=== PATIENT | female | born 1980 | race Caucasian/White ===

== ENCOUNTER 2017-03-10 15:27 | Emergency (ER) | payer OTHER ==
--- NOTE | 2017-03-10 19:08 | ED ORDER SUMMARY ---
..... Patient: LAMONTE FLORES OrderSheet [facility] VisitID: [id number] [address] [place] [address] 36y, F Registration Date/Time: 03/10/2017 ORDER SHEET Weight: 45.3 kg (stated) Allergies: Codeine, Lamictal, Sulfa Antibiotics GENERAL ORDERS: UA-Culture if indicated Urgent (16:30 03/10/2017 LSullivan R.N. verbal order read back to Luis Miguel VASQUEZ) (Ack 16:31 LNations ER Tech1) (16:54 LSullivan R.N.) CBC w Diff Urgent (17:08 03/10/2017 Luis Miguel VASQUEZ) (Ack 17:15 LNations ER Tech1) (17:45 LSullivan R.N.) CMP Urgent (17:08 03/10/2017 Luis Miguel VASQUEZ) (Ack 17:15 LNations ER Tech1) (17:45 LSullivan R.N.) CT Abd/Pel w Cont (No) (N/A) Urgent (18:13 03/10/2017 Luis Miguel VASQUEZ) (Ack 18:15 LNations ER Tech1) (18:52 LSullivan R.N.) MEDICATION ORDERS: GI Cocktail WHITE PO 30 mL with Lidocaine Viscous Mouth/Throat 15 mL, Maalox Plus Oral 15 mL (NOW) (17:09 03/10/2017 Luis Miguel VASQUEZ) (18:07 LSullivan R.N.) IV FLUIDS: IV Saline Lock (16:30 03/10/2017 LSullivan R.N. per protocol) (16:31 LSullivan R.N.) IV NS : initial bolus 1000 mL (1000 mL/hr), then none - (NOW) (17:08 03/10/2017 Luis Miguel VASQUEZ) (18:05 LSullivan R.N.) Dilaudid IV 1 mg (HIGH ALERT MEDICATION, NOW) (17:08 03/10/2017 Luis Miguel VASQUEZ) (18:07 LSullivan R.N.) Zofran IV 4 mg (NOW) (17:09 03/10/2017 Luis Miguel VASQUEZ) (18:05 LSullivan R.N.) Protonix IVP 40mg 40 mg (Mix in NS 10ml over 2min) (17:09 03/10/2017 Luis Miguel VASQUEZ) (18:06 Maddie Valladares) ORDER SHEET NOTES: [Electronically signed by Shell Hooker R.N. (19:20 03/10/2017)] [Electronically signed by Rhonda Alston MD (11:03 03/18/2017)] [Electronically locked/signed by Shell Hooker R.N. (19:20 03/10/2017)]
--- NOTE | 2017-03-10 19:08 | ED ORDER SUMMARY ---
..... Patient: LAMONTE FLORES OrderSheet [facility] VisitID: [id number] [address] [place] [address] 36y, F Registration Date/Time: 03/10/2017 ORDER SHEET Weight: 45.3 kg (stated) Allergies: Codeine, Lamictal, Sulfa Antibiotics GENERAL ORDERS: UA-Culture if indicated Urgent (16:30 03/10/2017 LSullivan R.N. verbal order read back to Luis Miguel VASQUEZ) (Ack 16:31 LNations ER Tech1) (16:54 LSullivan R.N.) CBC w Diff Urgent (17:08 03/10/2017 Luis Miguel VASQUEZ) (Ack 17:15 LNations ER Tech1) (17:45 LSullivan R.N.) CMP Urgent (17:08 03/10/2017 Luis Miguel VASQUEZ) (Ack 17:15 LNations ER Tech1) (17:45 LSullivan R.N.) CT Abd/Pel w Cont (No) (N/A) Urgent (18:13 03/10/2017 Luis Miguel VASQUEZ) (Ack 18:15 LNations ER Tech1) (18:52 LSullivan R.N.) MEDICATION ORDERS: GI Cocktail WHITE PO 30 mL with Lidocaine Viscous Mouth/Throat 15 mL, Maalox Plus Oral 15 mL (NOW) (17:09 03/10/2017 Luis Miguel VASQUEZ) (18:07 LSullivan R.N.) IV FLUIDS: IV Saline Lock (16:30 03/10/2017 LSullivan R.N. per protocol) (16:31 LSullivan R.N.) IV NS : initial bolus 1000 mL (1000 mL/hr), then none - (NOW) (17:08 03/10/2017 Luis Miguel VASQUEZ) (18:05 LSullivan R.N.) Dilaudid IV 1 mg (HIGH ALERT MEDICATION, NOW) (17:08 03/10/2017 Luis Miguel VASQUEZ) (18:07 LSullivan R.N.) Zofran IV 4 mg (NOW) (17:09 03/10/2017 Luis Miguel VASQUEZ) (18:05 LSullivan R.N.) Protonix IVP 40mg 40 mg (Mix in NS 10ml over 2min) (17:09 03/10/2017 Luis Miguel VASQUEZ) (18:06 Maddie Valladares) ORDER SHEET NOTES: [Electronically signed by Shell Hooker R.N. (19:20 03/10/2017)] [Electronically signed by Rhonda Alston MD (11:03 03/18/2017)] [Electronically locked/signed by Shell Hooker R.N. (19:20 03/10/2017)]
--- NOTE | 2017-03-10 19:08 | ED CLINICAL REPORT ---
Clinical Report - Physicians/Mid Levels [facility] [address] [place] [address] 03/10/2017 15:31 Patient: LAMONTE FLORES Time Seen: 15:33. Arrived- By private vehicle. Historian- patient. HISTORY OF PRESENT ILLNESS Chief Complaint: UPPER ABDOMINAL PAIN and INDIGESTION. It is described as pressure, tightness and burning. No radiation. It is described as located in the epigastric area and left upper quadrant of the abdomen. At its maximum, severity described as moderate. When seen in the E.D., severity described as moderate. Modifying factors. Not worsened by anything. Not relieved by anything. This started yesterday and is still present but is better now. Onset during light activity. The patient has had mild nausea. No vomiting, difficulty breathing or diaphoresis. Similar symptoms previously: Occasionally. Recent medical care: Not recently seen/assessed. REVIEW OF SYSTEMS No fever, chills, cough, pedal edema or calf pain. No fainting episodes, headache, sore throat, blurred vision or abdominal pain. No black stools, difficulty with urination, skin rash, enlarged lymph nodes or joint pain. No bloody stools. All systems otherwise negative, except as recorded above. PAST HISTORY Problems: Concussion. Tetanus Status. LNMP - Last Normal Menstrual Period. Endometriosis. Anxiety Reaction. Depression. Neuropathy. Additional Surgeries: Hysterectomy. L Salpingectomy. Laparoscopy. Medications: Cyclobenzaprine HCl Oral. Amitriptyline HCl Oral. BusPIRone HCl Oral. Gabapentin Oral 600 mg x 4.5 tabs , 3x a day. Omeprazole Oral, daily. Allergies: Codeine. Lamictal. Sulfa Antibiotics. SOCIAL HISTORY Smoker- current status unknown. Alcohol use. History of drug use: marijuana. ADDITIONAL NOTES The nursing notes have been reviewed. PHYSICAL EXAM Vital Signs: 03/10/2017 15:42 BP: 138/73. HR: 77. RR: 18. O2 saturation: 100%. Temp: 97.9 F. Pain level now: 610. Have been reviewed. Appearance: Alert. Oriented X3. No acute distress. Eyes: Pupils equal, round and reactive to light. Eyes normal inspection. ENT: Nose normal. Neck: Normal inspection. Neck supple. CVS: Normal heart rate and rhythm. Heart sounds normal. Pulses normal. Respiratory: No respiratory distress. Breath sounds normal. Abdomen: Soft. Moderate tenderness in the upper abdomen. Back: Normal external inspection. No CVA tenderness. Skin: Skin warm and dry. Normal skin color. No rash. Normal skin turgor. Extremities: Extremities exhibit normal ROM. No lower extremity edema. Neuro: No motor deficit. No sensory deficit. (grossly oriented.). LABS, X-RAYS, AND EKG Abdominal CT: Normal aorta. Normal liver, spleen, pancreas, gallbladder and adrenals. Normal kidneys. Bladder normal. Appendix normal. No mass. No free fluid. No bony lesion. No diverticulitis. Study type: abdomen and pelvis. Abdominal CT performed with IV contrast. The study was independently viewed by me, interpreted by the radiologist and contemporaneously by me and discussed with the radiologist. Prior studies were not available for comparison. Laboratory Tests: UA-Culture if indicated: (DONA: 03/10/2017 15:52) ( [facility] 03/10/2017 17:14) Final results Test Result Flag Units (Reference) URINE COLOR YELLOW URINE APPEARANCE CLEAR URINE GLUCOSE NEGATIVE (NEGATIVE) URINE BILIRUBIN NEGATIVE (NEGATIVE) URINE KETONE NEGATIVE (NEGATIVE) URINE SPECIFIC GRAVITY <= 1.005 L (1.010-1.030) URINE PH 5.5 (5.0-8.0) URINE PROTEIN NEGATIVE (NEGATIVE) URINE UROBILINOGEN 0.2 EU/dL (0.2-1.0) URINE NITRITE NEGATIVE (NEGATIVE) URINE BLOOD NEGATIVE (NEGATIVE) URINE LEUK ESTERASE NEGATIVE (NEGATIVE) URINE RBC 0-1 rbc/hpf (0-1) URINE WBC 0-1 wbc/hpf (0-1) URINE EPITHELIAL CELLS 1-3 EPI/hpf (0-5) URINE BACTERIA NONE SEEN (NONE SEEN) URINE COMMENT CULT NOT INDICATED URINE CULTURES ARE SET-UP BASED ON THE FOLLOWING CRITERIA:POSITIVE NITRITEPOSITIVE LEUKOCYTE ESTERASEGREATER THAN 10 WHITE BLOOD CELLSMODERATE (2+) OR GREATER BACTERIA CBC w Diff: (DONA: 03/10/2017 16:52) ( [facility] 03/10/2017 17:25) Final results Test Result Flag Units (Reference) WHITE BLOOD COUNT 7.3 K/uL (4.5-11.5) RED BLOOD COUNT 4.44 M/uL (4.00-5.20) HEMOGLOBIN 14.0 gm/dL (12.0-16.0) HEMATOCRIT 41.8 % (36.0-46.0) MEAN CELL VOLUME 94 fL (80-100) MEAN CORPUSCULAR HGB 31 pg (26-34) MEAN CORPUSCULAR HGB CONC 33 g/dL (31-37) RED CELL DISTRIBUTION WIDTH 13.3 % (11.6-14.8) PLATELET COUNT 236 K/uL (150-400) NEUTROPHIL % 74.0 % (50-75) LYMPH % 17.7 L % (25-40) MONO % 5.7 % (3-14) EOSINOPHIL % 2.2 % (0-4) BASOPHIL % 0.4 % (0-2) CMP: (DONA: 03/10/2017 16:52) ( [facility] 03/10/2017 17:25) Final results Test Result Flag Units (Reference) GLUCOSE 120 H mg/dL (70-110) BUN 6 L mg/dL (7-18) CREATININE 0.7 mg/dL (0.6-1.3) Estimated GFR >60 mL/min Estimated GFR- >60 mL/min Note: Persistent reduction over 3 months in eGFR<60 mL/min/1.73 m2 defines CKD. Patients with eGFR values>=60 mL/min/1.73 m2 may also have CKD if evidence ofpersistent proteinuria. Additional information may be foundat www.kidney.org. SODIUM 142 mmol/L (136-145) POTASSIUM 3.7 mmol/L (3.5-5.1) CHLORIDE 105 mmol/L (98-107) CARBON DIOXIDE 27 mmol/L (21-32) CALCIUM 9.0 mg/dL (8.5-10.1) TOTAL PROTEIN 7.5 g/dL (6.4-8.2) ALBUMIN 3.7 g/dL (3.3-5.0) BILIRUBIN, TOTAL 0.3 mg/dL (0.0-1.0) ALKALINE PHOSPHATASE 66 U/L (46-116) AST (SGOT) 22 U/L (15-37) ALT (SGPT) 31 U/L (12-78) . Pulse Oximetry: 03/10/2017 15:42 O2 saturation: 100%. (FIO2 - room air). Interpretation: normal. PROGRESS AND PROCEDURES Course of Care: The patient was treated symptomatically with IV fluids and Zofran, Protonix, Dilaudid and a GI cocktail. This did result in improvement in her symptoms. She was worked up with blood work as well as a urinalysis which were found to be unremarkable. CT scan was also unremarkable. No emergent cause of the patient's symptoms was found. Patient counseled in person regarding the patient's stable condition, test results, diagnosis and need for follow-up. Concerns were addressed. Old medical records reviewed. Disposition: Discharged. Condition: stable. CLINICAL IMPRESSION Gastroesophageal reflux disease with esophagitis. Acute gastritis. No alcoholic gastritis or hemorrhagic gastritis. INSTRUCTIONS (Your labs and CT scan looked good.). Warnings: GENERAL WARNINGS: Return or contact your physician immediately if your condition worsens or changes unexpectedly, if not improving as expected, or if other problems arise. Your Current Medications: CONTINUE TAKING THE FOLLOWING MEDICATIONS: Amitriptyline HCl Oral. BusPIRone HCl Oral. Cyclobenzaprine HCl Oral. Gabapentin Oral : 600 mg x 4.5 tabs 3x a day. Omeprazole Oral : daily. Prescription Medications: Zantac 150 mg: take 1 orally every 12 hours. Dispense sixty (60). No refills. Substitution is permissible. OTC Medications: Maximum Strength Maalox Liquid (Available over the counter): take two (2) teaspoons orally every 8 hours and as needed for indigestion or heartburn. Dispense one (1) bottle Follow-up: Follow up with your doctor. Call for the next available appointment. Reason for referral: Follow up to discuss endoscopy. Understanding of the discharge instructions verbalized by patient. (Electronically signed by Rhonda Alston MD 03/18/2017 11:03)
--- NOTE | 2017-03-10 19:08 | ED NURSING NOTES ---
Clinical Report - Nurses [facility] [address] [place] [address] 03/10/2017 15:31 Patient: LAMONTE FLORES TRIAGE Triage time 15:36. Acuity: LEVEL 3. Chief Complaint: CHEST PAIN and DISCOMFORT. Alert. --15:42 Shell Hooker R.N. 15:42 03/10/17. BP: 138/73. HR: 77. RR: 18. O2 saturation: 100%. Temp: 97.9 F. Pain level now: 03/20. --15:45 Shell Hooker R.N. Weight: 45.3 kg stated. Height/Length: 62 inches Per Patient. BMI: 18.3. --15:38 Shell Hooker R.N. Medications Gabapentin Oral 600 mg x 4.5 tabs , 3x a day. Omeprazole Oral, daily. --15:39 Shell Hooker R.N. BusPIRone HCl Oral. --15:39 Shell Hooker R.N. Amitriptyline HCl Oral. --15:40 Shell Hooker R.N. Cyclobenzaprine HCl Oral. --15:40 Shell Hooker R.N. Allergies Codeine. Lamictal. Sulfa Antibiotics. --15:37 Shell Hooker R.N. History Arrived by private vehicle. Historian: patient. Accompanied by spouse. Primary physician (Fer mcneil [facility] in [place]). This started yesterday. Treatment IT ADMIN: None. PAST MEDICAL HX: The patient has had a hysterectomy. SOCIAL HX: Heavy tobacco smoker (cigarette)- less than 1 pack per day. Occasional alcohol use. History of drug use: marijuana. FUNCTIONAL ASSESSMENT: Functional assessment: no impairments noted. LEARNING NEEDS ASSESSMENT: The learning needs assessment revealed no barriers. --15:42 Shell Hooker R.N. PROBLEMS: Concussion. Endometriosis. Anxiety Reaction. Depression. Neuropathy. --15:37 Shell Hooker R.N. ADDITIONAL SURGERIES: L fallopian tube removed. --15:38 Shell Hooker R.N. Hysterectomy. Laparoscopy. --15:42 Shell Hooker R.N. Interventions ID and allergy band on patient. To room. --15:42 Shell Hooker R.N. PHYSICAL ASSESSMENT 15:46 03/10/17. GENERAL / NEURO / PSYCH: ( Pt states she has reflux, but her esophagus and breast bone is pain ful.). --15:46 Shell Hooker R.N. NURSING PROGRESS NOTES 15:46 03/10/17. Patient identifiers checked. Call light placed in reach. Bed placed in lowest position. Patient ready for evaluation- chart flagged. --15:46 Shell Hooker R.N. 16:31 03/10/2017 Site #1 started via IV in the right antecubital space with an 20g angiocath, with aseptic technique and good blood return; one attempt. Blood drawn: rainbow set. Labeled in the presence of the patient and sent to the lab. Saline lock flushed with 10 mL saline. --16:31 Shell Hooker R.N. 17:50 03/10/2017 Started bag #1 1000 mL IV Fluids IV NS (Saline); at 1000 mL/hr via site #1 via IV pump. Allergies verified and confirmed 5 rights. --18:05 Shell Hooker R.N. 17:53 03/10/2017 Zofran (Ondansetron HCl) IVP 4 mg given over 2 minute(s) via site #1. Allergies verified and confirmed 5 rights. --18:05 Shell Hooker R.N. 17:55 03/10/2017 PROTONIX (Pantoprazole Sodium) IVP 40 mg given over 3 minute(s) via site #1. Allergies verified and confirmed 5 rights. --18:06 Shell Hooker R.N. 17:57 03/10/2017 GI COCKTAIL WHITE (Simethicone) PO 30 mL given. Confirmed 5 rights. --18:06 Shell Hooker R.N. 18:00 03/10/2017 Dilaudid (HYDROmorphone HCl PF) IVP 1 mg given over 2 minute(s) via site #1. Allergies verified, confirmed 5 rights and sedative warning given. --18:07 Shell Hooker R.N. 19:15 03/10/2017 Site #1 removed upon discharge. Catheter intact. Bandage applied. --19:20 Shell Hooker R.N. 19:15 03/10/2017 IV Fluids IV NS Discontinued: bag #1 completed upon discharge. Total amount infused: 1000 mL. --19:20 Shell Hooker R.N. DISPOSITION / DISCHARGE Departure time: 1914. Condition at departure: improved. No learning barriers present. Discharge instructions provided and reviewed with the patient. Reviewed medication(s) information. Prescription(s) given to the patient. Reviewed referral to family practice for followup and testing. Patient verbalized understanding. Written instructions provided. The patient was discharged home and accompanied by spouse. She left the Emergency Department ambulatory and via private vehicle. Spouse driving. --19:19 Shell Hooker R.N. 19:18 03/10/17. BP: 101/54. HR: 86. RR: 18. O2 saturation: 98%. Pain level now: 12/18. --19:19 Shell Hooker R.N. Locked/Released at 03/10/2017 19:20 by Shell Hooker R.N.
--- NOTE | 2017-03-10 19:08 | ED NURSING NOTES ---
Clinical Report - Nurses [facility] [address] [place] [address] 03/10/2017 15:31 Patient: LAMONTE FLORES TRIAGE Triage time 15:36. Acuity: LEVEL 3. Chief Complaint: CHEST PAIN and DISCOMFORT. Alert. --15:42 Shell Hooker R.N. 15:42 03/10/17. BP: 138/73. HR: 77. RR: 18. O2 saturation: 100%. Temp: 97.9 F. Pain level now: 03/20. --15:45 Shell Hooker R.N. Weight: 45.3 kg stated. Height/Length: 62 inches Per Patient. BMI: 18.3. --15:38 Shell Hooker R.N. Medications Gabapentin Oral 600 mg x 4.5 tabs , 3x a day. Omeprazole Oral, daily. --15:39 Shell Hooker R.N. BusPIRone HCl Oral. --15:39 Shell Hooker R.N. Amitriptyline HCl Oral. --15:40 Shell Hooker R.N. Cyclobenzaprine HCl Oral. --15:40 Shell Hooker R.N. Allergies Codeine. Lamictal. Sulfa Antibiotics. --15:37 Shell Hooker R.N. History Arrived by private vehicle. Historian: patient. Accompanied by spouse. Primary physician (Fer mcneil [facility] in [place]). This started yesterday. Treatment ALARM INSTALLER: None. PAST MEDICAL HX: The patient has had a hysterectomy. SOCIAL HX: Heavy tobacco smoker (cigarette)- less than 1 pack per day. Occasional alcohol use. History of drug use: marijuana. FUNCTIONAL ASSESSMENT: Functional assessment: no impairments noted. LEARNING NEEDS ASSESSMENT: The learning needs assessment revealed no barriers. --15:42 Shell Hooker R.N. PROBLEMS: Concussion. Endometriosis. Anxiety Reaction. Depression. Neuropathy. --15:37 Shell Hooker R.N. ADDITIONAL SURGERIES: L fallopian tube removed. --15:38 Shell Hooker R.N. Hysterectomy. Laparoscopy. --15:42 Shell Hooker R.N. Interventions ID and allergy band on patient. To room. --15:42 Shell Hooker R.N. PHYSICAL ASSESSMENT 15:46 03/10/17. GENERAL / NEURO / PSYCH: ( Pt states she has reflux, but her esophagus and breast bone is pain ful.). --15:46 Shell Hooker R.N. NURSING PROGRESS NOTES 15:46 03/10/17. Patient identifiers checked. Call light placed in reach. Bed placed in lowest position. Patient ready for evaluation- chart flagged. --15:46 Shell Hooker R.N. 16:31 03/10/2017 Site #1 started via IV in the right antecubital space with an 20g angiocath, with aseptic technique and good blood return; one attempt. Blood drawn: rainbow set. Labeled in the presence of the patient and sent to the lab. Saline lock flushed with 10 mL saline. --16:31 Shell Hooker R.N. 17:50 03/10/2017 Started bag #1 1000 mL IV Fluids IV NS (Saline); at 1000 mL/hr via site #1 via IV pump. Allergies verified and confirmed 5 rights. --18:05 Shell Hooker R.N. 17:53 03/10/2017 Zofran (Ondansetron HCl) IVP 4 mg given over 2 minute(s) via site #1. Allergies verified and confirmed 5 rights. --18:05 Shell Hooker R.N. 17:55 03/10/2017 PROTONIX (Pantoprazole Sodium) IVP 40 mg given over 3 minute(s) via site #1. Allergies verified and confirmed 5 rights. --18:06 Shell Hooker R.N. 17:57 03/10/2017 GI COCKTAIL WHITE (Simethicone) PO 30 mL given. Confirmed 5 rights. --18:06 Shell Hooker R.N. 18:00 03/10/2017 Dilaudid (HYDROmorphone HCl PF) IVP 1 mg given over 2 minute(s) via site #1. Allergies verified, confirmed 5 rights and sedative warning given. --18:07 Shell Hooker R.N. 19:15 03/10/2017 Site #1 removed upon discharge. Catheter intact. Bandage applied. --19:20 Shell Hooker R.N. 19:15 03/10/2017 IV Fluids IV NS Discontinued: bag #1 completed upon discharge. Total amount infused: 1000 mL. --19:20 Shell Hooker R.N. DISPOSITION / DISCHARGE Departure time: 1914. Condition at departure: improved. No learning barriers present. Discharge instructions provided and reviewed with the patient. Reviewed medication(s) information. Prescription(s) given to the patient. Reviewed referral to family practice for followup and testing. Patient verbalized understanding. Written instructions provided. The patient was discharged home and accompanied by spouse. She left the Emergency Department ambulatory and via private vehicle. Spouse driving. --19:19 Shell Hooker R.N. 19:18 03/10/17. BP: 101/54. HR: 86. RR: 18. O2 saturation: 98%. Pain level now: 12/18. --19:19 Shell Hooker R.N. Locked/Released at 03/10/2017 19:20 by Shell Hooker R.N.
--- NOTE | 2017-03-10 19:15 | DIAGNOSTIC IMAGING REPORT ---
PROCEDURE: CT ABD/PELVIS WITH CONTRAST CLINICAL INDICATION: ABDOMINAL PAIN TECHNIQUE: 100 ml of Isovue 300 were injected intravenously and axial images were obtained of the entire abdomen and pelvis with sagittal and coronal reformations. COMPARISON: None. FINDINGS: ABDOMEN: Lung bases are clear. Heart size is normal. Liver, gallbladder, pancreas, spleen, adrenal glands, kidneys and abdominal aorta are normal. Stomach is unremarkable. Moderate stool. PELVIS: Normal appendix. Hysterectomy. Normal bladder and adnexa. No pelvic mass or free fluid. Mild L5-S1 disc space narrowing. IMPRESSION: 1. Moderate stool 2. Hysterectomy 3. Results discussed with Dr. Alston All CT scans at this facility use dose modulation, iterative reconstruction, and/or weight-based dosing when appropriate to reduce radiation dose to as low as reasonably achievable.
--- NOTE | 2017-03-18 11:04 | ED DISCHARGE INSTRUCTIONS ---
Patient: LAMONTE FLORES General Instructions [facility] VisitID: [id number] [place] [address] 36y, F Registration Date/Time: 03/10/2017 Gastroesophageal reflux disease with esophagitis. Acute gastritis. No alcoholic gastritis or hemorrhagic gastritis. INSTRUCTIONS (Your labs and CT scan looked good.). Warnings: GENERAL WARNINGS: Return or contact your physician immediately if your condition worsens or changes unexpectedly, if not improving as expected, or if other problems arise. Your Current Medications: CONTINUE TAKING THE FOLLOWING MEDICATIONS: Amitriptyline HCl Oral. BusPIRone HCl Oral. Cyclobenzaprine HCl Oral. Gabapentin Oral : 600 mg x 4.5 tabs 3x a day. Omeprazole Oral : daily. Prescription Medications: Zantac 150 mg: take 1 orally every 12 hours. Dispense sixty (60). No refills. Substitution is permissible. OTC Medications: Maximum Strength Maalox Liquid (Available over the counter): take two (2) teaspoons orally every 8 hours and as needed for indigestion or heartburn. Dispense one (1) bottle Follow-up: Follow up with your doctor. Call for the next available appointment. Reason for referral: Follow up to discuss endoscopy. Understanding of the discharge instructions verbalized by patient. ADDITIONAL INFORMATION GERD (Adult) The esophagus is a tube that carries food from the mouth to the stomach. A valve at the lower end of the esophagus prevents stomach acid from flowing upward. If this valve does not work properly, acid from the stomach enters the esophagus. If this occurs over and over, the acid will injure the lining of the esophagus. This condition is called GERD (gastroesophageal reflux disease) or acid reflux. When stomach acid flows upward into the esophagus, it causes burning, pressure or sharp pain in the upper abdomen or mid to lower chest. The pain can spread to the neck, back, or shoulder, similar to heart pain (angina). There may be belching, an acid taste in the back of the throat, chronic cough, or sore throat or hoarseness. GERD symptoms often occur during the day after a big meal, but it can also occur at night when lying down. Smoking,as well as drinking alcohol, increases the risk of GERD. GERD is a chronic condition. Once it begins, it is often lifelong. Treatment includes changes in eating habits and the use of acid bess medications to decrease the amount of acid in the stomach. Symptoms often improve with treatment, but if treatment is stopped, the symptoms usually return after a few months. So most persons with GERD will need to continue treatment. Home Care: Take the prescribed acid bess medication for the full course of treatment even if you begin to feel better sooner. This medication can take up to several days to fully control your symptoms. If you cant afford the prescribed medication, you can try [id number] acid blockers, such as Pepcid AC, Tagamet, Zantac, or Aciphex. If these do not relieve your symptoms, a stronger acid-bess can be tried, such as Prilosec OTC. You can use antacids, such as Tums, Rolaids, Mylanta, or Maalox, for pain. This will be useful the first few days after starting acid blockers when the blockers havent started working yet. Follow the directions on the label. Liquid antacids may work better than tablets. Note that antacids can interfere with absorption of certain medications. Specifically, do not take Tagamet (cimetidine), Zantac (ranitidine), or Carafate (sucralfate) within 1 hour of taking an antacid. Talk with your pharmacist if you have any questions. Limit or avoid fatty, fried, and spicy foods, as well as coffee, chocolate, mint, and foods with high acid content such as tomatoes and citrus fruit and juices (orange, grapefruit, lemon). Avoid alcohol and smoking. Dont eat large meals, especially at night. Frequent, smaller meals are best. Do not lie down right after eating. And dont eat anything 3 hours before going to bed. If you are overweight, losing weight will reduce symptoms. Women should not wear corsets or girdles because this increases pressure on the stomach and worsens reflux. If your symptoms occur during sleep, use a foam wedge to elevate your upper body (not just your head.) Or, place 4" blocks under the head of your bed. Follow Up with your doctor or as advised by our staff. Further testing may be needed. If you do not begin to improve over the next 4 days, contact your doctor. If you had an x-ray, CT scan, or ECG (electrocardiogram), it will be reviewed by a specialist. Youll be notified of any new findings that affect your care. Get Prompt Medical Attention if any of the following occur: Stomach pain gets worse or moves to the lower right abdomen (appendix area) Chest pain appears or gets worse, or spreads to the back, neck, shoulder, or arm Frequent vomiting (cant keep down liquids) Blood in the stool or vomit (red or black in color) Feeling weak or dizzy, fainting, or trouble breathing Fever of 100.4F (38C) or higher, or as directed by your healthcare provider Gastritis Versus Ulcer (No Antibiotic Tx) The symptoms of gastritis and peptic ulcer are very similar. Both can cause a dull ache or burning pain in the upper abdomen. Other symptoms include nausea, vomiting, loss of appetite, and belching or bloating. Blood in the vomit or stools (red or black) is a sign of bleeding in the stomach. This requires immediate medical attention. A Peptic Ulcer is an open sore in the lining of the stomach or duodenum (upper intestine). The most common cause of peptic ulcer disease is a bacterial infection (H pylori) in the stomach. Another common cause is taking anti-inflammatory medications (such as ibuprofen, prednisone, and aspirin). Gastritis is an irritation of the stomach lining. It can be acute (recent) or chronic (lasting a long time). Gastritis can be caused by overuse of alcohol or anti-inflammatory medications (such as aspirin, ibuprofen, prednisone). H pyloriinfection can also cause chronic gastritis. Tests for H pyloriare used to screen for bacterial infection. If no infection is found, ulcer and gastritis can be treated by stopping the cause, such as anti-inflammatory medications, alcohol, caffeine, and tobacco, and treating with antacids plus an acid bess medication. If H pylori infection is found, antibiotics will be prescribed along with an acid bess. Persons 55 years and older may undergo other tests before treatment is started. Two common tests are used to evaluate your symptoms. An upper GI series is an x-ray taken after you drink a chalky liquid called barium. This coats the stomach and allows an ulcer to show up on the x-ray. Another test is called endoscopy during which a long thin tube called an endoscope is passed down your throat to the stomach. A camera at the end of the scope allows the doctor to view inside the stomach to check the cause of your symptoms. Home Care: Take the prescribed acid bess medication for the full course of treatment even if you begin to feel better sooner. This medication can take up to several days to fully control your symptoms. If you cant afford the prescribed medication, you can try [id number] acid blockers, such as Pepcid AC, Tagamet, Zantac, or Aciphex. If these do not relieve your symptoms, a stronger acid-bess can be tried, such as Prilosec OTC. If you have been prescribed an antibiotic to treat H pyloriinfection, finish the full course of medication. Do so even if you begin to feel better sooner. If you stop the medication too soon, the infection can return and be harder to treat. You can use antacids, such as Tums, Rolaids, Mylanta, or Maalox, for pain. This will be useful the first few days after starting acid blockers when the blockers havent started working yet. Follow the directions on the label. Liquid antacids may work better than tablets. Note that antacids can interfere with absorption of certain medications. Specifically, do not take Tagamet (cimetidine), Zantac (ranitidine), or Carafate (sucralfate) within 1 hour of taking an antacid. Talk with your pharmacist if you have any questions. Although foods do not cause an ulcer, symptoms can be worsened by certain foods. Limit or avoid fatty, fried, and spicy foods, as well as coffee, chocolate, mint, and foods with high acid content such as tomatoes and citrus fruit and juices (orange, grapefruit, lemon). Avoid alcohol, caffeine, and tobacco, which can delay healing. Avoid aspirin and anti-inflammatory medications such as ibuprofen (Advil, Motrin) and naproxen (Naprosyn, Aleve). Acetaminophen (Tylenol) is safe to use. Do not take more than the amount listed on the label. Follow Up with your doctor or as advised. Further testing may be needed. If you do not begin to improve over the next 4 days, contact your doctor. If you had tests, youll be notified of any new findings that affect your care. Get Prompt Medical Attention if any of the following occur: Stomach pain gets worse or moves to the lower right abdomen (appendix area) Chest pain appears or gets worse, or spreads to the back, neck, shoulder, or arm Frequent vomiting (cant keep down liquids) Blood in the stool or vomit (red or black in color) Feeling weak or dizzy, fainting, or trouble breathing Fever of 100.4F (38C) or higher, or as directed by your healthcare provider You have been given the following additional information: GERD (Adult) Gastritis Vs. Ulcer (Electronically signed by Rhonda Alston MD 03/18/2017 11:03)
--- NOTE | 2017-03-18 11:04 | ED MED RECONCILIATION SUMMARY ---
Patient: LAMONTE FLORES Medication Reconciliation Report [facility] VisitID: [id number] [address] [place] [address] 36y, F Registration Date/Time: 03/10/2017 Weight: 45.3 kg Height/Length: 62 in. BMI: 18.3 ALLERGIES: Codeine, Lamictal, Sulfa Antibiotics The patient's Home Medications are listed below: CONTINUE TAKING THE FOLLOWING MEDICATIONS: Amitriptyline HCl Oral BusPIRone HCl Oral Cyclobenzaprine HCl Oral Gabapentin Oral 600 mg x 4.5 tabs , 3x a day Omeprazole Oral, daily The source(s) of the original Home Medication information: Not obtained. The following Medications were given to the patient in the Emergency Department: IV NS IV Fluids bolus 0, then 1000 mL/hr, administered: 03/10/2017 5:50:00 PM Zofran [IVP] IVP 4 mg, administered: 03/10/2017 5:53:00 PM PROTONIX [IVP] IVP 40 mg, administered: 03/10/2017 5:55:00 PM GI COCKTAIL WHITE [PO] PO 30 mL, administered: 03/10/2017 5:57:00 PM Dilaudid [IVP] IVP 1 mg, administered: 03/10/2017 6:00:00 PM The following Medications were prescribed to the patient: Maximum Strength Maalox Liquid (Available over the counter): take two (2) teaspoons orally every 8 hours and as needed for indigestion or heartburn. Dispense one (1) bottle -- Rhonda Alston MD Zantac 150 mg: take 1 orally every 12 hours. Dispense sixty (60). No refills. Substitution is permissible. -- Rhonda Alston MD
--- NOTE | 2017-03-18 11:04 | ED MAR SUMMARY ---
..... Medication Administration Record [facility] [address] [place] [address] Patient: LAMONTE FLORES Visit ID: [id number] 36y, F Weight: 45.3 kg Height/Length: 62 in BMI: 18.3 ALLERGIES: Codeine, Lamictal, Sulfa Antibiotics Start 17:50 03/10/2017 Shell Hooker R.N., Stop 19:15 03/10/2017 Shell Hooker R.N. Medication Administered: IV NS (SALINE), Dose: IV Fluids, Rate: 1000 mL/hr, Dispensed: 1000 mL bag, Site: #1 right AC. Medication Ordered: IV NS : initial bolus 1000 mL (1000 mL/hr), then none - (NOW). Given 17:53 03/10/2017 hSell Hooker R.N. Medication Administered: ZOFRAN [IVP] (ONDANSETRON HCL), Dose: 4 mg IVP over 2 minute(s), Site: #1 right AC. Medication Ordered: Zofran IV 4 mg (NOW). Given 17:55 03/10/2017 Shell Hooker R.N. Medication Administered: PROTONIX [IVP] (PANTOPRAZOLE SODIUM), Dose: 40 mg IVP over 3 minute(s), Site: #1 right AC. Medication Ordered: Protonix IVP 40mg 40 mg (Mix in NS 10ml over 2min). Given 17:57 03/10/2017 Shell Hooker R.N. Medication Administered: GI COCKTAIL WHITE [PO] (SIMETHICONE), Dose: 30 mL PO. Medication Ordered: GI Cocktail WHITE PO 30 mL with Lidocaine Viscous Mouth/Throat 15 mL, Maalox Plus Oral 15 mL (NOW). Given 18:00 03/10/2017 Shell Hooker R.N. Medication Administered: DILAUDID [IVP] (HYDROMORPHONE HCL PF), Dose: 1 mg IVP over 2 minute(s), Site: #1 right AC. Medication Ordered: Dilaudid IV 1 mg (HIGH ALERT MEDICATION, NOW).
--- NOTE | 2017-03-18 11:04 | ED MAR SUMMARY ---
..... Medication Administration Record [facility] [address] [place] [address] Patient: LAMONTE FLORES Visit ID: [id number] 36y, F Weight: 45.3 kg Height/Length: 62 in BMI: 18.3 ALLERGIES: Codeine, Lamictal, Sulfa Antibiotics Start 17:50 03/10/2017 Shell Hooker R.N., Stop 19:15 03/10/2017 Shell Hooker R.N. Medication Administered: IV NS (SALINE), Dose: IV Fluids, Rate: 1000 mL/hr, Dispensed: 1000 mL bag, Site: #1 right AC. Medication Ordered: IV NS : initial bolus 1000 mL (1000 mL/hr), then none - (NOW). Given 17:53 03/10/2017 Shell Hooker R.N. Medication Administered: ZOFRAN [IVP] (ONDANSETRON HCL), Dose: 4 mg IVP over 2 minute(s), Site: #1 right AC. Medication Ordered: Zofran IV 4 mg (NOW). Given 17:55 03/10/2017 Shell Hooker R.N. Medication Administered: PROTONIX [IVP] (PANTOPRAZOLE SODIUM), Dose: 40 mg IVP over 3 minute(s), Site: #1 right AC. Medication Ordered: Protonix IVP 40mg 40 mg (Mix in NS 10ml over 2min). Given 17:57 03/10/2017 Shell Hooker R.N. Medication Administered: GI COCKTAIL WHITE [PO] (SIMETHICONE), Dose: 30 mL PO. Medication Ordered: GI Cocktail WHITE PO 30 mL with Lidocaine Viscous Mouth/Throat 15 mL, Maalox Plus Oral 15 mL (NOW). Given 18:00 03/10/2017 Shell Hooker R.N. Medication Administered: DILAUDID [IVP] (HYDROMORPHONE HCL PF), Dose: 1 mg IVP over 2 minute(s), Site: #1 right AC. Medication Ordered: Dilaudid IV 1 mg (HIGH ALERT MEDICATION, NOW).
--- NOTE | 2017-03-18 11:04 | ED MED RECONCILIATION SUMMARY ---
Patient: LAMONTE FLORES Medication Reconciliation Report [facility] VisitID: [id number] [address] [place] [address] 36y, F Registration Date/Time: 03/10/2017 Weight: 45.3 kg Height/Length: 62 in. BMI: 18.3 ALLERGIES: Codeine, Lamictal, Sulfa Antibiotics The patient's Home Medications are listed below: CONTINUE TAKING THE FOLLOWING MEDICATIONS: Amitriptyline HCl Oral BusPIRone HCl Oral Cyclobenzaprine HCl Oral Gabapentin Oral 600 mg x 4.5 tabs , 3x a day Omeprazole Oral, daily The source(s) of the original Home Medication information: Not obtained. The following Medications were given to the patient in the Emergency Department: IV NS IV Fluids bolus 0, then 1000 mL/hr, administered: 03/10/2017 5:50:00 PM Zofran [IVP] IVP 4 mg, administered: 03/10/2017 5:53:00 PM PROTONIX [IVP] IVP 40 mg, administered: 03/10/2017 5:55:00 PM GI COCKTAIL WHITE [PO] PO 30 mL, administered: 03/10/2017 5:57:00 PM Dilaudid [IVP] IVP 1 mg, administered: 03/10/2017 6:00:00 PM The following Medications were prescribed to the patient: Maximum Strength Maalox Liquid (Available over the counter): take two (2) teaspoons orally every 8 hours and as needed for indigestion or heartburn. Dispense one (1) bottle -- Rhonda Alston MD Zantac 150 mg: take 1 orally every 12 hours. Dispense sixty (60). No refills. Substitution is permissible. -- Rhonda Alston MD
== END 2017-03-10 19:15 | disposition home or self-care (01) ==
LOC: ED SRH 15:27
DX: K21.0 Gastro-esophageal reflux disease with esophagitis (principal); K29.00 Acute gastritis without bleeding; Z79.899 Other long term (current) drug therapy; Z88.5 Allergy status to narcotic agent; Z88.2 Allergy status to sulfonamides; Z88.8 Allergy status to other drugs, medicaments and biological substances
CPT/HCPCS: 90004; 90074; 90100; 95059